=== PATIENT | female | born 1945 | race Caucasian/White ===

== ENCOUNTER 2016-04-06 14:31 | Emergency (ER) | payer MEDICARE, OTHER ==
[~2016-04-06] VITALS: Ht 162.6 cm; Wt 59.0 kg
[2016-04-06] MEDS ORDERED: ACETAMINOPHEN 500 MG TAB PO ONE ×2 (14:40→15:15)
[2016-04-06 14:57] VITALS: BP 94/70
== END 2016-04-06 19:25 | disposition left against medical advice (07) ==
LOC: ER 14:33
DX: R05 Cough (principal); R50.9 Fever, unspecified; Z53.21 Procedure and treatment not carried out due to patient leaving prior to being seen by health care provider

== ENCOUNTER → 2016-11-04 | Outpatient (CLI) | payer MEDICARE, OTHER ==
[~2016-11-04] MED LIST: ALBU0.084 NEB; FLUT250M2 IN; MECL1TAB42 PO; MONT4CHW9 PO; OME20T PO; PRE5T PO
== END | disposition home or self-care (01) ==
LOC: XYW 09:32
PROVIDERS: ATTEND Internal Medicine
DX: R07.9 Chest pain, unspecified (principal); R06.02 Shortness of breath; I10 Essential (primary) hypertension; J44.9 Chronic obstructive pulmonary disease, unspecified; N39.0 Urinary tract infection, site not specified
CPT/HCPCS: 93306

== ENCOUNTER → 2016-12-02 | Outpatient (CLI) | payer MEDICARE ==
[2016-12-02 12:41] LABS: Basophils # (auto) 0.1 uL; Basophils % (auto) 0.6 % (0.0-2.0); Eosinophils # (auto) 0 uL; Eosinophils % (auto) 0.1 % (0.0-7.0); Lymphocytes # (auto) 1.5 uL; Mean Platelet Volume 7.4 fL (6.9-10.8); Monocytes # (auto) 0.7 uL; Nucleated Red Blood Cells % 0.1 %
[2016-12-02 12:44] LABS: Hematocrit 49.9 % (36.0-46.0); Lymphocytes % (auto) 15.2 % (10.0-50.0); Mean Corpuscular Hemoglobin 34.1 pg (28.0-32.0); Mean Corpuscular Volume 100.3 fL (80.0-100.0); Monocytes % (auto) 7.1 % (0.0-12.0); Neutrophils # (auto) 7.5 uL; Platelet Count (auto) 321 10^3/uL (140-450); Red Cell Distribution Width 15.4 % (11.8-14.3); White Blood Cell 9.8 10^3/uL (4.4-10.8)
[2016-12-02 12:49] LABS: Urine Bilirubin Negative (Negative); Urine Blood Negative /uL (Negative); Urine Color Yellow (Yellow); Urine Glucose Normal (Normal); Urine Ketone Negative (Negative); Urine Mucus FEW (None Seen); Urine Nitrite Negative (Negative); Urine RBC <1 /hpf (0 - 4); Urine Squamous Epithelial Cell FEW /hpf (<5); Urine Urobilinogen Normal (Negative)
[2016-12-02 13:12] LABS: Albumin 3.7 g/dL (3.4-5.0); BUN/Creatinine Ratio 14.3; Bilirubin, Total 0.4 mg/dL (0.2-1.0); Calcium 9.1 mg/dL (8.5-10.1); Potassium 4.8 mmol/L (3.5-5.1)
== END | disposition home or self-care (01) ==
LOC: LAB 12:09
PROVIDERS: ATTEND Internal Medicine
DX: I10 Essential (primary) hypertension (principal); E78.2 Mixed hyperlipidemia; E03.9 Hypothyroidism, unspecified
CPT/HCPCS: 36415; 80053; 80061; 81001; 84443; 85025; 86803

== ENCOUNTER 2017-10-15 20:55 | Inpatient (IN) | payer MEDICARE ==
[~2017-10-15] VITALS: Ht 162.6 cm; Wt 61.0 kg
[2017-10-15 21:41] LABS: Basophils # (auto) 0.1 uL; Mean Corpuscular Volume 107.5 fL (80.0-100.0); Monocytes # (auto) 0.5 uL; Red Cell Distribution Width 15.2 % (11.8-14.3)
[2017-10-15 21:43] LABS: Basophils % (auto) 0.8 % (0.0-2.0); Eosinophils # (auto) 0.3 uL; Eosinophils % (auto) 5.1 % (0.0-7.0); Hematocrit 46.7 % (36.0-46.0); Hemoglobin 15.8 g/dL (12.2-16.2); Mean Corpuscular Hemoglobin 36.3 pg (28.0-32.0); Mean Corpuscular Hgb Conc. 33.7 g/dL (32.0-36.0); Monocytes % (auto) 7.2 % (0.0-12.0); Neutrophils # (auto) 2.9 uL; Neutrophils % (auto) 42.9 % (37.0-80.0); Nucleated Red Blood Cells % 0.2 %; Platelet Count (auto) 257 10^3/uL (140-450); Red Blood Cells 4.34 10^6/uL (4.0-5.20); White Blood Cell 6.8 10^3/uL (4.4-10.8)
[2017-10-15] MEDS ORDERED: IPRATROPIUM BROM 0.5 MG/2.5ML INH SOL NEB ONE (21:45)
[2017-10-15] MEDS ORDERED: ALBUTEROL SULF 2.5 MG/0.5ML(0.5%) NEB SOLN NEB ONE (21:45)
[2017-10-15 22:02] LABS: Alanine Aminotransferase 24 U/L (13-56); Albumin 3.3 g/dL (3.4-5.0); Alkaline Phosphatase 83 U/L (45-117); Anion Gap 15 (5-15); Aspartate Aminotransferase 21 U/L (15-37); BUN/Creatinine Ratio 7.5; Bilirubin, Total 0.5 mg/dL (0.2-1.0); Blood Urea Nitrogen 3 mg/dL (7-18); Carbon Dioxide 22 mmol/L (21-32); Chloride 102 mmol/L (98-107); GFR African American 201 mL/min; GFR Non-African American 166 mL/min; Glucose 88 mg/dL (74-106); Magnesium 2.2 mg/dL (1.6-2.6); Potassium 3.3 mmol/L (3.5-5.1); Sodium 139 mmol/L (136-145); Total Protein 5.9 g/dL (6.4-8.2)
[2017-10-15 22:11] LABS: Urine Bacteria NONE SEEN /hpf (None Seen); Urine Blood Negative /uL (Negative); Urine Specific Gravity 1.001 (1.001-1.035); Urine WBC <1 /hpf (0 - 5)
[2017-10-15 22:11] LABS: INR 0.96 (0.9-1.15); Partial Thromboplastin Time 27.2 sec (23.78-33.04); Prothrombin Time 10.3 sec (9.27-12.13)
[2017-10-16] VITALS (9 sets, daily range): BP systolic 97–142; BP diastolic 49–73
[2017-10-16] MEDS ORDERED: LEVOFLOXACIN 750MG 150 ML IV ONE
[2017-10-16] MEDS ORDERED: TEMAZEPAM 15 MG CAP PO PRN (01:00)
[2017-10-16] MEDS ORDERED: MECLIZINE HCL 25 MG TAB PO PRN (01:00)
[2017-10-16] MEDS ORDERED: ONDANSETRON HCL 4 MG/2 ML VIAL IV PRN (01:00)
[2017-10-16] MEDS ORDERED: ACETAMINOPHEN 325 MG TAB PO PRN (01:00)
[2017-10-16] MEDS ORDERED: NITROGLYCERIN 0.4 MG SL TAB SL PRN (01:00)
[2017-10-16] MEDS ORDERED: MORPHINE SULF INJ 2 MG/ML SYRINGE 1ML IV PRN (01:00)
[2017-10-16] MEDS: ALBUTEROL SULF 2.5 MG/0.5ML(0.5%) NEB SOLN NEB PRN ×4 (02:10→19:43)
[2017-10-16] MEDS: HYDROcodone-ACET 5/325MG TAB PO PRN ×3 (07:09→19:22)
[2017-10-16] MEDS: FAMOTIDINE 20 MG TAB PO SCH ×2 (09:18→21:30)
[2017-10-16] MEDS: ENOXAPARIN SOD 40 MG/0.4 ML SYRINGE SC SCH (09:18)
[2017-10-16] MEDS: MONTELUKAST SODIUM 10 MG TAB PO SCH (21:31)
[2017-10-16] MEDS: LEVOFLOXACIN 500MG 100 ML IV SCH (23:13)
[2017-10-17] MEDS: ALBUTEROL SULF 2.5 MG/0.5ML(0.5%) NEB SOLN NEB PRN ×3 (01:10→09:58)
[2017-10-17] MEDS: HYDROcodone-ACET 5/325MG TAB PO PRN ×2 (01:21→11:23)
[2017-10-17 05:00] VITALS: BP 139/69
[2017-10-17 07:00] LABS: Basophils # (auto) 0.1 uL; Eosinophils # (auto) 0.3 uL; Eosinophils % (auto) 5.2 % (0.0-7.0); Hematocrit 44.6 % (36.0-46.0); Hemoglobin 15.3 g/dL (12.2-16.2); Lymphocytes # (auto) 1.5 uL; Lymphocytes % (auto) 27.2 % (10.0-50.0); Mean Corpuscular Hemoglobin 37.1 pg (28.0-32.0); Mean Corpuscular Hgb Conc. 34.2 g/dL (32.0-36.0); Mean Corpuscular Volume 108.2 fL (80.0-100.0); Monocytes # (auto) 0.5 uL; Monocytes % (auto) 10.1 % (0.0-12.0); Neutrophils % (auto) 56.5 % (37.0-80.0); Nucleated Red Blood Cells % 0.8 %; Platelet Count (auto) 227 10^3/uL (140-450); Red Blood Cells 4.12 10^6/uL (4.0-5.20); Red Cell Distribution Width 15.1 % (11.8-14.3); White Blood Cell 5.3 10^3/uL (4.4-10.8)
[2017-10-17 07:27] LABS: BUN/Creatinine Ratio 13.2; Bilirubin, Total 0.9 mg/dL (0.2-1.0); Calcium 8.3 mg/dL (8.5-10.1); Potassium 3.5 mmol/L (3.5-5.1); Total Protein 5.3 g/dL (6.4-8.2)
[2017-10-17 09:34] VITALS: BP 141/67
[2017-10-17] MEDS: ENOXAPARIN SOD 40 MG/0.4 ML SYRINGE SC SCH (10:28)
[2017-10-17] MEDS: FAMOTIDINE 20 MG TAB PO SCH ×2 (10:28→22:05)
[2017-10-17] MEDS: methylPREDNISolone SOD SUCC 125 MG/2 ML VL IV SCH (10:28)
[2017-10-17] MEDS: ALBUTEROL SULF 2.5 MG/0.5ML(0.5%) NEB SOLN NEB SCH ×3 (13:55→22:33)
[2017-10-17 14:11] VITALS: BP 143/74
[2017-10-17 18:19] VITALS: BP 117/60
[2017-10-17 22:00] VITALS: BP 134/74
[2017-10-17] MEDS: MONTELUKAST SODIUM 10 MG TAB PO SCH (22:06)
[2017-10-17] MEDS: LEVOFLOXACIN 500MG 100 ML IV SCH (23:00)
[2017-10-18] MEDS: ALBUTEROL SULF 2.5 MG/0.5ML(0.5%) NEB SOLN NEB SCH ×6 (02:00→22:24)
[2017-10-18] MEDS: HYDROcodone-ACET 5/325MG TAB PO PRN ×2 (04:59→19:17)
[2017-10-18 05:00] VITALS: BP 133/69
[2017-10-18 09:00] VITALS: BP 121/59
[2017-10-18] MEDS: ENOXAPARIN SOD 40 MG/0.4 ML SYRINGE SC SCH (09:59)
[2017-10-18] MEDS: methylPREDNISolone SOD SUCC 125 MG/2 ML VL IV SCH (09:59)
[2017-10-18] MEDS: FAMOTIDINE 20 MG TAB PO SCH ×2 (09:59→21:24)
[2017-10-18 13:00] VITALS: BP 122/54
[2017-10-18 17:00] VITALS: BP 128/62
[2017-10-18] MEDS: MONTELUKAST SODIUM 10 MG TAB PO SCH (21:24)
[2017-10-18 22:00] VITALS: BP 121/57
[2017-10-18] MEDS: LEVOFLOXACIN 500MG 100 ML IV SCH (23:05)
[2017-10-19] VITALS (8 sets, daily range): BP systolic 116–160; BP diastolic 60–79
[2017-10-19] MEDS: ALBUTEROL SULF 2.5 MG/0.5ML(0.5%) NEB SOLN NEB SCH ×6 (02:00→22:48)
[2017-10-19] MEDS: HYDROcodone-ACET 5/325MG TAB PO PRN ×3 (05:22→20:22)
[2017-10-19] MEDS ORDERED: DOCUSATE SOD 100 MG CAP PO PRN (07:45)
[2017-10-19] MEDS ORDERED: ADENOSINE 52 MG in GIVE UN-DILUTED 0 ML IV ONE (09:15)
[2017-10-19] MEDS ORDERED: IPRATROPIUM BROM 0.5 MG/2.5ML INH SOL ONE (09:43)
[2017-10-19] MEDS: methylPREDNISolone SOD SUCC 125 MG/2 ML VL IV SCH (12:08)
[2017-10-19] MEDS: FAMOTIDINE 20 MG TAB PO SCH ×2 (12:08→21:09)
[2017-10-19 13:09] LABS: Cholesterol 172 mg/dL (< 200); HDL Cholesterol 79 mg/dL (40-59); LDL Cholesterol 78 mg/dL (< 100); Triglycerides 83 mg/dL (< 150)
[2017-10-19] MEDS: ENOXAPARIN SOD 40 MG/0.4 ML SYRINGE SC SCH (13:58)
[2017-10-19] MEDS ORDERED: KETOROLAC TROMETH 30 MG/ML 1ML VIAL IV ONE ×2 (19:00→20:45)
[2017-10-19] MEDS: MONTELUKAST SODIUM 10 MG TAB PO SCH (21:09)
[2017-10-19] MEDS: LEVOFLOXACIN 500MG 100 ML IV SCH (22:58)
[2017-10-20] MEDS: ALBUTEROL SULF 2.5 MG/0.5ML(0.5%) NEB SOLN NEB SCH ×3 (00:56→10:00)
[2017-10-20 05:00] VITALS: BP 188/88
[2017-10-20] MEDS ORDERED: KETOROLAC TROMETH 30 MG/ML 1ML VIAL IV ONE (07:00)
[2017-10-20 07:05] LABS: Basophils # (auto) 0 uL; Eosinophils # (auto) 0 uL; Lymphocytes # (auto) 1.1 uL; Monocytes # (auto) 0.7 uL; Monocytes % (auto) 11.3 % (0.0-12.0); Red Cell Distribution Width 14.6 % (11.8-14.3)
[2017-10-20 07:09] LABS: Basophils % (auto) 0.3 % (0.0-2.0); Hematocrit 46.8 % (36.0-46.0); Hemoglobin 15.8 g/dL (12.2-16.2); Lymphocytes % (auto) 16.9 % (10.0-50.0); Mean Corpuscular Hgb Conc. 33.9 g/dL (32.0-36.0); Mean Corpuscular Volume 109.2 fL (80.0-100.0); Neutrophils # (auto) 4.5 uL; Neutrophils % (auto) 71.5 % (37.0-80.0); Nucleated Red Blood Cells % 0.1 %; Platelet Count (auto) 220 10^3/uL (140-450); Red Blood Cells 4.28 10^6/uL (4.0-5.20); White Blood Cell 6.3 10^3/uL (4.4-10.8)
[2017-10-20 07:16] LABS: Potassium 4.3 mmol/L (3.5-5.1)
[2017-10-20 07:22] LABS: BUN/Creatinine Ratio 26.5
[2017-10-20 08:00] VITALS: BP 130/73
[2017-10-20] MEDS: methylPREDNISolone SOD SUCC 125 MG/2 ML VL IV SCH (08:41)
[2017-10-20] MEDS: FAMOTIDINE 20 MG TAB PO SCH (08:41)
[2017-10-20] MEDS: ENOXAPARIN SOD 40 MG/0.4 ML SYRINGE SC SCH (08:42)
[2017-10-20 09:00] VITALS: BP 142/58
[2017-10-20 12:00] VITALS: BP 130/73
== END 2017-10-20 12:40 | disposition home or self-care (01) | DRG 202 ==
LOC: EDBD 20:55 → ER 21:03 → TELE 21:04 → TELE-EAST 10-16 01:40
PROVIDERS: ADMIT Nurse Practitioner; ATTEND Family Medicine
DX: J20.9 Acute bronchitis, unspecified (principal); J44.1 Chronic obstructive pulmonary disease with (acute) exacerbation; J44.0 Chronic obstructive pulmonary disease with (acute) lower respiratory infection; E78.00 Pure hypercholesterolemia, unspecified; E86.0 Dehydration; E87.6 Hypokalemia; F17.210 Nicotine dependence, cigarettes, uncomplicated; I08.0 Rheumatic disorders of both mitral and aortic valves; I10 Essential (primary) hypertension; R07.89 Other chest pain; K21.9 Gastro-esophageal reflux disease without esophagitis; Z80.3 Family history of malignant neoplasm of breast; Z82.49 Family history of ischemic heart disease and other diseases of the circulatory system; Z82.5 Family history of asthma and other chronic lower respiratory diseases; Z88.6 Allergy status to analgesic agent; Z90.710 Acquired absence of both cervix and uterus; Z99.81 Dependence on supplemental oxygen; Z80.1 Family history of malignant neoplasm of trachea, bronchus and lung; Z80.41 Family history of malignant neoplasm of ovary; Z88.0 Allergy status to penicillin; Z90.49 Acquired absence of other specified parts of digestive tract
CPT/HCPCS: 36415; 71045; 78452; 80048; 80053; 80061; 81001; 83735; 83880; 84443; 84484; 85025; 85379; 85610; 85730; 87040; 93005; 93017; 93306; 94640; 94761; 96374; J0153; J1885; J1956